=== PATIENT | female | born 1970 | race Asian ===

== ENCOUNTER 2021-06-29 17:53 | Emergency (ER) | payer SELFPAY ==
[~2021-06-29] VITALS: Ht 157.5 cm; Wt 66.0 kg
[2021-06-29 17:55] VITALS: BP 149/95
== END 2021-06-29 18:59 | disposition left against medical advice (07) ==
LOC: ER 18:21
DX: Z53.21 Procedure and treatment not carried out due to patient leaving prior to being seen by health care provider (principal)
CPT/HCPCS: 93005